=== PATIENT | male | born 1990 | race African-American/Black ===

== ENCOUNTER 2022-10-04 19:09 | Emergency (ER) | payer SELFPAY ==
[~2022-10-04] VITALS: Ht 182.9 cm; Wt 89.0 kg
[2022-10-04] MEDS ORDERED: KETOROLAC 30MG/ML VIAL IV STA (20:02)
[2022-10-04] MEDS ORDERED: SODIUM CHLORIDE 0.9% 1,000 ML IV ONE (20:15)
[2022-10-04] MEDS ORDERED: NITROGLYCERIN 0.4MG TABLET SL SL PRN (20:15)
[2022-10-04] MEDS ORDERED: ASPIRIN 81MG TABLET PO ONE (20:15)
[2022-10-04 20:53] LABS: BASOPHILS % 0.5 % (0.0-2.0); EOSINOPHILS % 1.9 % (0.0-5.0); HEMATOCRIT. 44.5 % (42.0-52.0); HEMOGLOBIN. 14.9 g/dL (14.0-18.0); LYMPHOCYTES % 23.2 % (20.0-50.0); MEAN CORPUSCULAR HEMOGLOBIN 30.7 pg (28.0-32.0); MEAN CORPUSCULAR VOLUME 91.6 fL (80.0-94.0); MONOCYTES % 6.8 % (2.0-8.0); NEUTROPHILS % 67.6 % (40.0-76.0); PLATELET 280 x1000/uL (130-400); RED BLOOD CELL COUNT 4.86 mill/uL (4.7-6.1); RED CELL DISTRIBUTION WIDTH 13.2 % (11.6-14.6)
[2022-10-04 20:56] LABS: CHLORIDE 101 mEq/L (98-107)
[2022-10-04 21:07] LABS: ETHANOL BLOOD < 10 mg/dL
[2022-10-04] MEDS ORDERED: IBUP-2028 MT (22:15)
[2022-10-04 23:34] VITALS: BP 121/84
== END 2022-10-04 23:36 | disposition home or self-care (01) ==
LOC: ER 19:09
DX: R07.89 Other chest pain (principal)
CPT/HCPCS: 36415; 71045; 80053; 80320; 82962; 83880; 84484; 85025; 93005; 96361; 96374; 99285; J1885; J7030; Z7610; G0480